=== PATIENT | male | born 1965 | race Two or more races ===

== ENCOUNTER 2024-01-10 12:45 | Inpatient (IN) | payer MEDICAID, OTHER ==
[~2024-01-10] VITALS: Ht 162.6 cm; Wt 56.3 kg
[2024-01-10 14:13] LABS: Basophils # (auto) 0 10 ^3/uL (0-0.2); Basophils % (auto) 0.6 % (0.0-2.0); Eosinophils # (auto) 0.1 10 ^3/uL (0-0.8); Eosinophils % (auto) 1.3 % (0.0-7.0); Hematocrit 36.2 % (41.0-53.0); Lymphocytes # (auto) 2.1 10 ^3/uL (0.4-5.4); Lymphocytes % (auto) 25.6 % (10.0-50.0); Mean Corpuscular Hemoglobin 30.5 pg (28.0-32.0); Mean Corpuscular Hgb Conc. 33.1 g/dL (32.0-36.0); Mean Corpuscular Volume 91.9 fL (80.0-100.0); Monocytes # (auto) 0.5 10 ^3/uL (0-1.3); Monocytes % (auto) 6.1 % (0.0-12.0); Neutrophils # (auto) 5.4 10 ^3/uL (1.6-8.6); Neutrophils % (auto) 66.4 % (37.0-80.0); Nucleated Red Blood Cells % 0.1 %; Red Blood Cells 3.94 10^6/uL (4.5-5.90); Red Cell Distribution Width 14.9 % (11.8-14.3); White Blood Cell 8.1 10^3/uL (4.4-10.8)
[2024-01-10 14:28] LABS: Alanine Aminotransferase 22 U/L (7-40); Albumin 3.9 g/dL (3.2-4.8); Alkaline Phosphatase 87 U/L (46-116); Anion Gap 7 (5-15); Aspartate Aminotransferase 17 U/L (13-40); BUN/Creatinine Ratio 17.4 (10.0-20.0); Bilirubin, Total 0.8 mg/dL (0.2-1.0); Blood Urea Nitrogen 15 mg/dL (9-23); Calcium 9.6 mg/dL (8.7-10.4); Carbon Dioxide 28 mmol/L (20-30); Chloride 112 mmol/L (98-107); Creatine Kinase IFCC 196 U/L (46-171); Glucose 79 mg/dL (74-106); Magnesium 2.3 mg/dL (1.6-2.6); Potassium 3.6 mmol/L (3.5-5.1); Sodium 147 mmol/L (136-145); Total Protein 6.1 g/dL (5.7-8.2)
[2024-01-10 15:39] LABS: Salicylate < 3.0 mg/dL (2.8-20.0)
[2024-01-10] MEDS: SODIUM CHLORIDE 0.9% 1,000 ML IV ONE ×2 (15:45→17:30)
[2024-01-10] MEDS: SOD CHL 0.45% 1,000 ML IV SCH (17:30)
[2024-01-10] MEDS ORDERED: ACETAMINOPHEN 325 MG TAB PO PRN (17:30)
[2024-01-10] MEDS ORDERED: ONDANSETRON HCL 4 MG/2 ML VIAL IV PRN (17:30)
[2024-01-10] MEDS ORDERED: SODIUM CHLORIDE 0.9% 1,000 ML IV SCH (17:30)
[2024-01-10] MEDS ORDERED: MORPHINE SULFATE INJ 2 MG/ml SYRG IV PRN (17:30)
[2024-01-10] MEDS ORDERED: NITROGLYCERIN 0.4 MG SL TAB SL PRN (17:30)
[2024-01-10 18:24] VITALS: PULSE 54; RESP 16; O2SAT 97
[2024-01-10 19:11] LABS: LDL Cholesterol 89 mg/dL (< 100); Triglycerides 79 mg/dL (< 150)
[2024-01-10 19:13] LABS: Cholesterol 155 mg/dL (< 200); HDL Cholesterol 44 mg/dL (40-59)
[2024-01-10 20:00] VITALS: PULSE 59; RESP 18; O2SAT 96
[2024-01-10] MEDS ORDERED: VANCOMYCIN PER PHARMACY 0 MG IV SCH (21:30)
[2024-01-10] MEDS: cefTRIAXone 2GM/50ML D5W 50 ML IV ONE (22:39)
[2024-01-10] MEDS: VANCOMYCIN 1GM/200ML 200 ML IV ONE (23:05)
[2024-01-11 06:02] LABS: Basophils # (auto) 0 10 ^3/uL (0-0.2); Basophils % (auto) 0.6 % (0.0-2.0); Eosinophils # (auto) 0.1 10 ^3/uL (0-0.8); Eosinophils % (auto) 0.9 % (0.0-7.0); Hematocrit 37.7 % (41.0-53.0); Hemoglobin 12.2 g/dL (13.5-17.5); Lymphocytes # (auto) 1.3 10 ^3/uL (0.4-5.4); Lymphocytes % (auto) 16.7 % (10.0-50.0); Mean Corpuscular Hemoglobin 30.2 pg (28.0-32.0); Mean Corpuscular Hgb Conc. 32.4 g/dL (32.0-36.0); Mean Corpuscular Volume 93.2 fL (80.0-100.0); Monocytes # (auto) 0.4 10 ^3/uL (0-1.3); Monocytes % (auto) 5.5 % (0.0-12.0); Neutrophils % (auto) 76.3 % (37.0-80.0); Red Blood Cells 4.04 10^6/uL (4.5-5.90); Red Cell Distribution Width 14.4 % (11.8-14.3); White Blood Cell 7.9 10^3/uL (4.4-10.8)
[2024-01-11 06:20] LABS: Alanine Aminotransferase 15 U/L (7-40); Albumin 3.6 g/dL (3.2-4.8); Alkaline Phosphatase 81 U/L (46-116); Anion Gap 10 (5-15); Aspartate Aminotransferase 20 U/L (13-40); BUN/Creatinine Ratio 11.7 (10.0-20.0); Bilirubin, Total 0.6 mg/dL (0.2-1.0); Blood Urea Nitrogen 7 mg/dL (9-23); Calcium 8.8 mg/dL (8.5-10.1); Carbon Dioxide 23 mmol/L (20-30); Chloride 112 mmol/L (98-107); Creatine Kinase IFCC 185 U/L (46-171); Glucose 87 mg/dL (74-106); Potassium 3.4 mmol/L (3.5-5.1); Sodium 145 mmol/L (136-145); Total Protein 5.8 g/dL (5.7-8.2)
[2024-01-11 08:00] VITALS: PULSE 66; RESP 19; O2SAT 99
[2024-01-11] MEDS: ENOXAPARIN SOD 40 MG/0.4 ML SYRINGE SC SCH (08:30)
[2024-01-11] MEDS: VANCOMYCIN 750mg/150ml 150 ML IV ONE (12:33)
[2024-01-11] MEDS ORDERED: VANCOMYCIN 750mg/150ml 150 ML IV SCH (17:00)
[2024-01-11 20:00] VITALS: PULSE 70; RESP 13; O2SAT 99
[2024-01-11 22:43] VITALS: BP 149/91; PULSE 60; RESP 17; TEMP 98.2; O2SAT 100
[2024-01-11] MEDS: VANCOMYCIN 750mg/150ml 150 ML IV SCH (23:56)
[2024-01-12] VITALS (9 sets, daily range): BP systolic 109–156; BP diastolic 67–99; PULSE 66–89; RESP 16–20; TEMP 97.4–99.5; O2SAT 94–100
[2024-01-12] MEDS ORDERED: OLAN20TA PO (07:56)
[2024-01-12] MEDS ORDERED: MEMA1TAB3 PO (07:56)
[2024-01-12] MEDS ORDERED: ASPI-543 PO (07:56)
[2024-01-12] MEDS ORDERED: LEVE500T40 PO (07:57)
[2024-01-12 11:29] LABS: Urine Bacteria FEW /hpf (None Seen); Urine Blood 3+ /uL (Negative); Urine Budding Yeast OCCASIONAL /hpf (None Seen); Urine Clarity Clear (Clear); Urine Protein, UAD Negative (Negative); Urine Specific Gravity 1.005 (1.001-1.035); Urine Urobilinogen Normal (Negative); Urine WBC 1 /hpf (0 - 3); Urine pH 6.5 (5.0-9.0)
[2024-01-12 11:32] LABS: Urine Color STRAW (Yellow)
[2024-01-12 11:42] LABS: Amphetamine Screen, Urine Neg (NEGATIVE); Barbiturate Scree,Urine Neg (NEGATIVE); Benzodiazephine Screen, Urine Neg (NEGATIVE); Cannabinoid Screen, Urine Neg (NEGATIVE); Cocaine Screen, Urine Neg (NEGATIVE); Opiate Scree,Urine Neg (NEGATIVE); Phencyclidine Screen, Urine Neg (NEGATIVE)
[2024-01-12] MEDS ORDERED: hydrALAZINE HCL 20 MG/ML VL IV PRN (13:15)
[2024-01-12] MEDS ORDERED: ATOR10TA PO (14:16)
[2024-01-12] MEDS: OLANZapine 5 MG TAB PO ONE (14:40)
[2024-01-12] MEDS: MEMANTINE HCL 5 MG TAB PO ONE (14:41)
[2024-01-12] MEDS: ASPirin 81 mg TAB PO ONE (14:41)
[2024-01-12] MEDS: ATORVASTATIN 20 MG TAB PO SCH (22:28)
[2024-01-12] MEDS: levETIRAcetam 500 MG TAB PO SCH (22:28)
[2024-01-13] VITALS (7 sets, daily range): BP systolic 91–122; BP diastolic 67–78; PULSE 61–75; RESP 16–21; TEMP 97.3–97.9; O2SAT 96–98
[2024-01-13] MEDS: ASPirin 81 mg TAB PO SCH (09:44)
[2024-01-13] MEDS: MEMANTINE HCL 5 MG TAB PO SCH (09:44)
[2024-01-13] MEDS: OLANZapine 5 MG TAB PO SCH (09:45)
[2024-01-14] VITALS (7 sets, daily range): BP systolic 113–147; BP diastolic 66–82; PULSE 55–77; RESP 16–18; TEMP 36.7; O2SAT 91–100
[2024-01-14] MEDS ORDERED: ACETAMINOPHEN 325 MG TAB PO PRN (11:15)
[2024-01-14] MEDS: OLANZapine 5 MG TAB PO SCH (11:31)
[2024-01-14] MEDS: levETIRAcetam 500 MG TAB PO SCH (11:32)
[2024-01-14] MEDS: ASPirin 81 mg TAB PO SCH (11:32)
[2024-01-14] MEDS: MEMANTINE HCL 5 MG TAB PO SCH (11:32)
[2024-01-14] MEDS ORDERED: ATORVASTATIN 20 MG TAB PO SCH (22:00)
== END 2024-01-14 19:50 | DRG 52 ==
LOC: ER 12:45 → EDBD 12:45 → TELE 17:29 → TELE-WESTW 17:29
PROVIDERS: ADMIT Nurse Practitioner Family; ATTEND Nurse Practitioner Acute Care
DX: G93.41 Metabolic encephalopathy (principal); E87.0 Hyperosmolality and hypernatremia; F03.90 Unspecified dementia, unspecified severity, without behavioral disturbance, psychotic disturbance, mood disturbance, and anxiety; G40.909 Epilepsy, unspecified, not intractable, without status epilepticus; I10 Essential (primary) hypertension; D64.9 Anemia, unspecified; E78.5 Hyperlipidemia, unspecified
CPT/HCPCS: 36415; 70450; 71045; 80053; 80061; 80202; 80307; 80320; 80329; 81001; 82140; 82550; 82565; 83605; 83735; 83880; 84443; 84484; 85025; 87081; 92610; 96360; A4565; G0378